=== PATIENT | male | born 1980 | race Caucasian/White ===

== ENCOUNTER 2018-05-24 15:14 | Emergency (ER) | payer BC ==
[~2018-05-24] VITALS: Ht 188 cm; Wt 106.6 kg
[~2018-05-24 15:14] MED LIST: IMITREX50 MG PO; PREDNISONE20 MG PO; TESSALON PERLE100 MG PO
[2018-05-24 15:31] VITALS: BP 119/75
[2018-05-24 16:39] LABS: HEMATOCRIT 39.5 % (38.0-50.0); HEMOGLOBIN 14.3 G/DL (12.5-16.6); MCH 35.4 PG (29.0-34.0); MCHC 36.2 G/DL (30.0-36.0); MCV 97.8 FL (86-99); PLATELET COUNT 247 K/uL (156-360); RBC DIS.WIDTH-CV 12.3 % (11.8-14.6); RBC DIS.WIDTH-SD 44.9 % (39-53); RED BLOOD COUNT 4.04 M/uL (4.00-5.50); WHITE BLOOD COUNT 10.5 K/uL (4.1-10.2)
[2018-05-24 16:51] LABS: ALBUMIN 4.2 g/dL (3.2-4.8); CHLORIDE 108 mEq/L (99-109); POTASSIUM 3.6 mEq/L (3.7-5.4); SODIUM 142 mEq/L (136-147)
[2018-05-24 16:53] LABS: GLUCOSE 115 mg/dL (70-99); TOTAL PROTEIN 6.8 g/dL (6.4-8.3)
[2018-05-24 16:55] LABS: TOTAL BILIRUBIN 0.7 mg/dL (0.0-1.0)
[2018-05-24 16:57] LABS: ALKALINE PHOSPHATASE 71 IU/L (3-129); GFR ESTIMATE (CALCULATED) > 59 mL/min/ (58.99-99999)
[2018-05-24 16:58] LABS: UREA NITROGEN (BUN) 13 mg/dL (9-23)
[2018-05-24 16:59] LABS: AST (GOT) 14 IU/L (2-34)
[2018-05-24 17:00] LABS: ALT (GPT) 15 IU/L (3-49)
[2018-05-24] MEDS ORDERED: PERCOCET 5/31 TABLET PO (18:02)
[2018-05-24] MEDS ORDERED: MOTRIN800 MG PO (18:02)
== END 2018-05-24 18:05 | disposition home or self-care (01) ==
LOC: EME 15:14
PROVIDERS: Nurse Practitioner Family
DX: S87.81XA Crushing injury of right lower leg, initial encounter (principal); S70.11XA Contusion of right thigh, initial encounter; W23.0XXA Caught, crushed, jammed, or pinched between moving objects, initial encounter; Y99.0 Civilian activity done for income or pay; F17.200 Nicotine dependence, unspecified, uncomplicated
CPT/HCPCS: 73552; 73590; 73706; 80053; 85027